=== PATIENT | female | born 1955 | race African-American/Black ===

== ENCOUNTER 2022-01-14 12:11 | Emergency (ER) | payer MEDICARE ==
[~2022-01-14] VITALS: Ht 167.6 cm; Wt 141.0 kg
[2022-01-14] MEDS ORDERED: LISI-186 PO (12:53)
[2022-01-14] MEDS ORDERED: AMLO10TA80 PO (12:53)
[2022-01-14 14:15] LABS: BASOPHILS % 0.3 % (0.0-2.0); HEMATOCRIT. 38.8 % (36.0-48.0); HEMOGLOBIN. 12.8 g/dL (12.0-16.0); LYMPHOCYTES % 28.2 % (20.0-50.0); MEAN CORPUSCULAR HEMOGLOBIN 26.8 pg (28.0-32.0); MEAN CORPUSCULAR VOLUME 81.5 fL (81.0-99.0); MONOCYTES % 9.5 % (2.0-8.0); PLATELET 252 x1000/uL (130-400); RED BLOOD CELL COUNT 4.76 mill/uL (4.2-5.4)
[2022-01-14 14:24] LABS: CHLORIDE 108 mEq/L (98-107)
[2022-01-14] MEDS ORDERED: IBUPROFEN 400MG TABLET PO ONE (15:30)
[2022-01-14 15:52] LABS: CLARITY URINE CLEAR (CLEAR); COLOR URINE YELLOW (YELLOW); KETONES URINE NEGATIVE (NEGATIVE); LEUKOCYTE ESTERASE URINE NEGATIVE (NEGATIVE); NITRITE URINE NEGATIVE (NEGATIVE); OCCULT BLOOD URINE NEGATIVE (NEGATIVE); PROTEIN URINE NEGATIVE (NEGATIVE); SPECIFIC GRAVITY URINE 1.013 (1.005-1.030); UROBILINOGEN URINE 0.2 E.U./dL (0.2-1.0)
[2022-01-14] MEDS ORDERED: IBUP-2028 MT (16:44)
[2022-01-14 17:01] VITALS: BP 152/67
== END 2022-01-14 17:32 | disposition home or self-care (01) ==
LOC: ER 12:11
DX: I10 Essential (primary) hypertension (principal)
CPT/HCPCS: 36415; 80053; 81003; 82962; 85025; 93005; 99285